=== PATIENT | female | born 2000 | race Caucasian/White ===

== ENCOUNTER 2019-01-24 19:53 | Emergency (ER) | payer OTHER ==
[~2019-01-24] VITALS: Ht 167.6 cm; Wt 62.3 kg
[2019-01-24 20:06] VITALS: BP 132/73
[2019-01-24] MEDS ORDERED: ACETAMINOPHEN 325 MG TAB PO ONE (21:00)
[2019-01-24] MEDS ORDERED: ACETAMINOPHEN 325 MG TAB ONE ×2 (21:22→21:56)
[2019-01-24 22:33] VITALS: BP 119/69
== END 2019-01-24 22:33 | disposition home or self-care (01) ==
LOC: MED 19:53
DX: S33.5XXA Sprain of ligaments of lumbar spine, initial encounter (principal); V00.131A Fall from skateboard, initial encounter; Y93.51 Activity, roller skating (inline) and skateboarding; Y92.331 Roller skating rink as the place of occurrence of the external cause; Y99.8 Other external cause status
CPT/HCPCS: 72100; 72220; 81002; 81025; 99283

== ENCOUNTER 2019-08-05 12:37 | Emergency (ER) | payer OTHER ==
[~2019-08-05] VITALS: Ht 170.2 cm; Wt 64.0 kg
[2019-08-05 12:44] VITALS: BP 127/58
--- NOTE | 2019-08-05 13:05 | NUR ---
18 Y/F PRESENTS TO ED FOR CHEST PRESSURE THAT STARTED X 2 DAY. PAIN IS ON AND OFF 5/10 SHARP PRESSURE. RR EVEN AND UNLABORED. DENIES SOB, LUNGS CLEAR, ABD SOFT.PAIN SUBSIDES AT NIGHT. PT REPORTS TAKING MUCINEX AND HAD NO RELIEF. PT REPORTS SHE ALSO HAD A SORE THROAT X 2 DAYS AGO THAT SUBSIDED THAT SAME DAY. DENIES URI SX, NEGATIVE FOR COUGH, SORE THROAT. PT DENEIS N/V/D OR FEVERS. PMH- BORDERLINE HYPERLIPIDEMIA (NO RX)
--- NOTE | 2019-08-05 13:11 | NUR ---
ARNAV FUCHS AT BEDSIDE.
[2019-08-05] MEDS ORDERED: KETOROLAC 30 MG/ML VIAL IM ONE (13:20)
--- NOTE | 2019-08-05 13:35 | NUR ---
XR AT BEDSIDE.
[2019-08-05 14:33] VITALS: BP 121/55
--- NOTE | 2019-08-05 14:34 | NUR ---
Patient discharged with v/s stable. Written and verbal after care instructions given and explained. Patient alert, oriented and verbalized understanding of instructions. Ambulatory with steady gait. All questions addressed prior to discharge. ID band removed. Patient advised to follow up with PMD. Rx of PREDNISONE AND NAPROSN given. Patient educated on indication of medication including possible reaction and side effects. Opportunity to ask questions provided and answered.
== END 2019-08-05 14:34 | disposition home or self-care (01) ==
LOC: MED 12:37
DX: M94.0 Chondrocostal junction syndrome [Tietze] (principal); E78.00 Pure hypercholesterolemia, unspecified
CPT/HCPCS: 71045; 93005; 96372; 99283; J1885; Q0092